=== PATIENT | male | born 1980 | race Caucasian/White ===

== ENCOUNTER 2020-12-30 18:45 | Emergency (ER) | payer MEDICAID ==
[~2020-12-30] VITALS: Ht 170.2 cm; Wt 84.8 kg
[~2020-12-30 18:45] MED LIST: ACET-8386 PO; IBUP-2213 PO
[2020-12-30 18:58] VITALS: BP 157/97
--- NOTE | 2020-12-30 19:33 | NUR ---
PT TAKEN TO BED 7
--- NOTE | 2020-12-30 19:56 | NUR ---
patient reports an abscess on the buttock that started on wednesday. Patient reports it being painful and hard to sit on his own butt. there is swelling, drainage, pain but no foul smell. AAOx4. VSS. PMH: Gout, hypertension Allergies: NKA
--- NOTE | 2020-12-30 19:57 | NUR ---
ERMD at bedside for examination
[2020-12-30] MEDS ORDERED: IBUPROFEN 600 MG TAB PO ONE (20:05)
[2020-12-30] MEDS ORDERED: LIDOCAINE/PRILOCAINE 2.5% 5 GM TUBE TP ONE (20:05)
[2020-12-30] MEDS ORDERED: LIDOCAINE/EPI 1% 1:100000 20 ML VIAL INJ ONE (20:05)
--- NOTE | 2020-12-30 21:21 | NUR ---
LEENA doing I&D procedure
[2020-12-30] MEDS ORDERED: NAPR-54 PO (21:36)
[2020-12-30] MEDS ORDERED: SULF-59 PO (21:36)
[2020-12-30] MEDS ORDERED: SULFAMETH/TRIMETH DS 800/160MG 1 TAB PO ONE (21:40)
[2020-12-30 22:15] VITALS: BP 137/106
--- NOTE | 2020-12-30 22:15 | NUR ---
Patient discharged with v/s stable. Written and verbal after care instructions given and explained. Patient alert, oriented and verbalized understanding of instructions. Ambulatory with steady gait. All questions addressed prior to discharge. ID band removed. Patient advised to follow up with PMD. Rx of Naprosyn and Bactrim Ds tab given. Patient educated on indication of medication including possible reaction and side effects. Opportunity to ask questions provided and answered.
== END 2020-12-30 22:15 | disposition home or self-care (01) ==
LOC: MED 18:45
DX: L02.31 Cutaneous abscess of buttock (principal); L03.317 Cellulitis of buttock; Z79.899 Other long term (current) drug therapy
CPT/HCPCS: 99284; J2001

== ENCOUNTER 2021-02-25 17:22 | Emergency (ER) | payer SELFPAY ==
[~2021-02-25] VITALS: Ht 170.2 cm; Wt 79.8 kg
[~2021-02-25 17:22] MED LIST changes: +NAPR-54 PO; +SULF-59 PO
[2021-02-25 17:32] VITALS: BP 140/100
[2021-02-25] MEDS ORDERED: NACL 0.9% 1,000 ML IV SCH ×2 (17:45→19:15)
[2021-02-25] MEDS ORDERED: MORPHINE SULFATE 2 MG/ML SYR IVP ONE (17:45)
[2021-02-25] MEDS ORDERED: ONDANSETRON 4 MG/2 ML VIAL IVP ONE (17:45)
--- NOTE | 2021-02-25 17:45 | NUR ---
PT EVALUATED BY DR REES IN [facility]
--- NOTE | 2021-02-25 17:48 | NUR ---
URINE SAMPLE IN [facility]
--- NOTE | 2021-02-25 17:48 | NUR ---
PT AMBULATED TO BED 10
--- NOTE | 2021-02-25 17:55 | NUR ---
41 Y/O MALE C/O SUDDEN-ONSET LOW BACK PAIN SINCE THIS AM 0500. 05/18 SHARP/STABBING RADIATING TO ABDOMEN. DENIES TRAUMA OR INJURY TO AREA. 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 DENIES FEVER, N/V/D, DENIES URINARY PROBLEMS. PT A/O X4 WITH EVEN AND UNLABORE RESPIRATIONS PMH: NONE MEDS: NONE NKA
[2021-02-25 18:11] LABS: BASOPHILS # (AUTO) 0.1 K/uL (0.00-0.22); BASOPHILS % (AUTO) 0.6 % (0.0-2.0); EOSINOPHILS # (AUTO) 0.1 K/uL (0-0.4); EOSINOPHILS % (AUTO) 0.8 % (0.0-4.0); HEMATOCRIT 42.3 % (36-52); LYMPHOCYTES % (AUTO) 16.2 % (20.5-51.1); MEAN CORPUSCULAR HEMOGLOBIN 30 pg (27-31); MEAN CORPUSCULAR HGB CONC 33 g/dL (33-37); MEAN CORPUSCULAR VOLUME 91.4 fL (80-94); MONOCYTES # (AUTO) 1.3 K/uL (0.8-1.0); MONOCYTES % (AUTO) 10.7 % (1.7-9.3); NEUTROPHILS % (AUTO) 71.7 % (42.2-75.2); PLATELET COUNT (AUTO) 239 K/uL (140-450); RED BLOOD CELL COUNT(AUTO) 4.63 MIL/uL (4.20-6.10); RED CELL DISTRIBUTION WIDTH 14.4 % (11.6-13.7); WHITE BLOOD COUNT (AUTO) 12.6 K/uL (4.8-10.8)
[2021-02-25 18:13] LABS: APPEARANCE,URINE CLEAR (CLEAR); BILIRUBIN,URINE NEGATIVE (NEGATIVE); BLOOD, URINE TRACE-I (NEGATIVE); COLOR,URINE ORANGE (YELLOW); LEUKOCYTE ESTERASE ,URINE NEGATIVE (NEGATIVE); NITRITE, URINE NEGATIVE (NEGATIVE); UGLUCOSE NEGATIVE (NEGATIVE)
--- NOTE | 2021-02-25 18:13 | NUR ---
PT TAKEN TO CT VIA W/C
--- NOTE | 2021-02-25 18:25 | NUR ---
PT BACK FROM CT
[2021-02-25 18:27] LABS: ALBUMIN 4.2 g/dL (3.4-5.0); ANION GAP 10.8 (8-16); CARBON DIOXIDE 27.2 mmol/L (21-32); CREATININE 1.1 mg/dL (0.6-1.3); TOTAL BILIRUBIN 1.3 mg/dL (0.0-1.0)
[2021-02-25 18:28] LABS: RBC,URINE 0-5 /HPF (0-5); WBC,URINE 0-5 /HPF (0-5)
--- NOTE | 2021-02-25 19:00 | NUR ---
PT C/O SAME 05/[address] REES MADE AWARE
[2021-02-25] MEDS ORDERED: ACETAMINOPHEN 325 MG TAB PO PRN (19:15)
[2021-02-25] MEDS ORDERED: MORPHINE SULFATE 2 MG/ML SYR IVP PRN (19:15)
[2021-02-25] MEDS ORDERED: LORazepam 2 MG/ML VIAL IM/IVP PRN (19:15)
[2021-02-25] MEDS ORDERED: DOCUSATE SODIUM 100 MG GELCAP PO PRN (19:15)
[2021-02-25] MEDS ORDERED: ZOLPIDEM 5 MG TAB PO PRN (19:15)
[2021-02-25] MEDS ORDERED: ONDANSETRON 4 MG/2 ML VIAL IVP PRN (19:15)
[2021-02-25] MEDS ORDERED: HYDROcodone/APAP 5/325 MG 1 TAB TAB PO PRN (19:15)
[2021-02-25] MEDS ORDERED: ONDANSETRON 4 MG/2 ML VIAL ONE (19:26)
--- NOTE | 2021-02-25 19:26 | NUR ---
REPORT GIVEN TO GATITO PÉREZ, TRANSFER OF CARE AT THIS TIME.
[2021-02-25] MEDS ORDERED: MORPHINE SULFATE 4 MG/ML SYR ONE (19:27)
[2021-02-25] MEDS ORDERED: PIPERACILLIN/TAZOBACTAM 3.375 GM VIAL IV ONE (19:30)
[2021-02-25] MEDS ORDERED: PIPERACILLIN/TAZOBACTAM 3.375 GM in DEXTROSE 5% 50 ML IV ONE (19:30)
[2021-02-25 19:45] LABS: CHOL/HDL RATIO 1.9 (1-4.5); FREE T4 (FREE THYROXINE) 0.83 ng/dL (0.76-1.46); PHOSPHORUS 3.3 mg/dL (2.5-4.9); THYROID STIMULATING HORMONE 0.74 uIU/mL (0.34-3.74)
[2021-02-25 19:46] LABS: BARBITURATE, URINE NEGATIVE ng/ml (NEG <=200); BENZODIAZEPINE, URINE NEGATIVE ng/mL (NEG <=200); CANNABINOID, URINE POSITIVE ng/mL (NEG <=50); COCAINE, URINE NEGATIVE ng/mL (NEG <=300); OPIATE, URINE NEGATIVE ng/mL (NEG <=2000); PHENCYCLIDINE SCREEN,URINE NEGATIVE ng/mL (NEG <=25)
[2021-02-25] MEDS ORDERED: metroNIDAZOLE 500 MG/NS PREMIX 100 ML IV SCH (21:00)
[2021-02-26] MEDS ORDERED: BUPIVACAINE-MPF/EPI 0.25% 30 ML VIAL INJ ONE (13:55)
[2021-02-28] MEDS ORDERED: ACET-9531 PO (11:06)
[2021-02-28] MEDS ORDERED: NAPR-54 PO (11:06)
== END 2021-02-25 19:30 | disposition left against medical advice (07) ==
LOC: MED 17:22 → UNDOADMIN 19:16 → MMU 19:16
DX: K35.80 Unspecified acute appendicitis (principal); M54.9 Dorsalgia, unspecified; F12.90 Cannabis use, unspecified, uncomplicated; Z79.899 Other long term (current) drug therapy
CPT/HCPCS: 36415; 74176; 80053; 80061; 80305; 81001; 82150; 83036; 83690; 83735; 83880; 84100; 84439; 84443; 84484; 85025; 96361; 96374; 96375; 99285; J2270; J2405; J7030; J0696; J2543; J3490; J7060

== ENCOUNTER 2021-04-03 18:00 | Emergency (ER) | payer MEDICAID, SELFPAY ==
[~2021-04-03] VITALS: Ht 170.2 cm; Wt 79.4 kg
[~2021-04-03 18:00] MED LIST changes: -ACET-8386 PO; +ACET-9531 PO; -IBUP-2213 PO; -SULF-59 PO
[2021-04-03 18:12] VITALS: BP 165/92
[2021-04-03] MEDS ORDERED: IBUP-2213 PO (19:42)
[2021-04-03] MEDS: KETOROLAC 30 MG/ML VIAL IM ONE (20:30)
--- NOTE | 2021-04-03 20:48 | NUR ---
PTS LEFT ARM WAS PLACED IN SHOULDER SLING. PTS [facility] [place] [facility]NL.
[2021-04-03 20:50] VITALS: BP 138/80
--- NOTE | 2021-04-03 20:55 | NUR ---
Brisa jones in ED - 04/03/21 at 2111 by [facility] PTS LEFT ARM WAS PLACED IN A SHOULDER SLING. PTS [facility] [place].
== END 2021-04-03 20:50 | disposition home or self-care (01) ==
LOC: MED 18:00
DX: S46.212A Strain of muscle, fascia and tendon of other parts of biceps, left arm, initial encounter (principal); X58.XXXA Exposure to other specified factors, initial encounter; Y93.89 Activity, other specified; Y92.89 Other specified places as the place of occurrence of the external cause; Y99.8 Other external cause status
CPT/HCPCS: 73060; 96372; 99283; J1885

== ENCOUNTER 2021-08-28 16:56 | Emergency (ER) | payer MEDICAID, OTHER ==
[~2021-08-28] VITALS: Ht 170.2 cm; Wt 94.3 kg
[~2021-08-28 16:56] MED LIST changes: +IBUP-2213 PO
[2021-08-28 17:35] VITALS: BP 183/110
--- NOTE | 2021-08-28 17:41 | NUR ---
C/O ABSCESS LEFT [place] X YESTERDAY. BP 183/110 AT THIS TIME. PMH: HTN
[2021-08-28] MEDS ORDERED: LIDOCAINE/EPI 1% 1:100000 20 ML VIAL INJ ONE (18:40)
[2021-08-28] MEDS ORDERED: SULF-59 PO (19:12)
[2021-08-28] MEDS ORDERED: NAPR-54 PO (19:29)
--- NOTE | 2021-08-28 20:28 | NUR ---
Patient discharged with v/s stable. Written and verbal after care instructions given and explained. Patient verbalized understanding. Ambulatory with steady gait. All questions addressed prior to discharge. Advised to follow up with PMD.
== END 2021-08-28 20:10 | disposition home or self-care (01) ==
LOC: MED 16:56
DX: L02.11 Cutaneous abscess of neck (principal); I10 Essential (primary) hypertension; Z79.899 Other long term (current) drug therapy
CPT/HCPCS: 10060; 99283; J2001; 99284

== ENCOUNTER 2023-10-10 13:47 | Inpatient (IN) | payer OTHER, MEDICAID ==
[~2023-10-10] VITALS: Ht 170.2 cm; Wt 83.6 kg
[~2023-10-10 13:47] MED LIST changes: +SULF-59 PO
[2023-10-10 14:06] VITALS: BP 119/83; PULSE 105; RESP 20; TEMP 98.4; O2SAT 98
[2023-10-10] MEDS: NACL 0.9% 2,000 ML IV ONE (14:43)
[2023-10-10] MEDS: KETOROLAC 30 MG/ML VIAL IVP ONE (14:44)
[2023-10-10] MEDS: ONDANSETRON 4 MG/2 ML VIAL IVP ONE (14:44)
[2023-10-10 15:03] LABS: BASOPHILS # (AUTO) 0.1 K/uL (0.00-0.22); BASOPHILS % (AUTO) 0.5 % (0.0-2.0); EOSINOPHILS % (AUTO) 0.1 % (0.0-4.0); HEMATOCRIT 39.6 % (36-52); HEMOGLOBIN 13.2 g/dL (12.0-18.0); LYMPHOCYTES # (AUTO) 1.4 K/uL (2.0-11.5); LYMPHOCYTES % (AUTO) 13.5 % (20.5-51.1); MEAN CORPUSCULAR HEMOGLOBIN 31 pg (27-31); MEAN CORPUSCULAR HGB CONC 33 g/dL (33-37); MEAN CORPUSCULAR VOLUME 91.4 fL (80-94); MONOCYTES # (AUTO) 0.9 K/uL (0.8-1.0); MONOCYTES % (AUTO) 7.9 % (1.7-9.3); NEUTROPHILS # (AUTO) 8.4 K/uL (1.8-7.7); PLATELET COUNT (AUTO) 405 K/uL (140-450); RED BLOOD CELL COUNT(AUTO) 4.33 MIL/uL (4.20-6.10); RED CELL DISTRIBUTION WIDTH 13.8 % (11.6-13.7); WHITE BLOOD COUNT (AUTO) 10.7 K/uL (4.8-10.8)
[2023-10-10] MEDS: MORPHINE SULFATE 4 MG/ML SYR IVP ONE (15:09)
[2023-10-10 15:22] LABS: ANION GAP 12.3 (8-16); CALCIUM 8.6 mg/dL (8.5-10.1); CARBON DIOXIDE 27.6 mmol/L (21-32); POTASSIUM 3.9 mmol/L (3.5-5.1)
[2023-10-10 15:27] LABS: ALBUMIN 2.3 g/dL (3.4-5.0); BILIRUBIN,DIRECT 0.2 mg/dL (0.0-0.3); TOTAL BILIRUBIN 0.9 mg/dL (0.0-1.0); TOTAL PROTEIN, SERUM 7.7 g/dL (6.4-8.2)
[2023-10-10 15:46] VITALS: O2SAT 98
[2023-10-10 15:48] LABS: FLU A ANTIGEN negative (NEGATIVE); FLU B ANTIGEN NEGATIVE (NEGATIVE)
[2023-10-10] MEDS ORDERED: cefTRIAXone 1,000 MG VIAL ONE (15:53)
[2023-10-10] MEDS ORDERED: AZITHROMYCIN 500 MG INJ VIAL IV ONE ×2 (15:53→16:23)
[2023-10-10] MEDS ORDERED: ONDANSETRON 4 MG/2 ML VIAL ONE (16:07)
[2023-10-10] MEDS: NACL 0.9% 1,000 ML IV SCH (16:10)
[2023-10-10] MEDS ORDERED: ONDANSETRON 4 MG/2 ML VIAL IVP PRN (16:10)
[2023-10-10] MEDS ORDERED: BENZONATATE 100 MG CAPLF PO PRN (16:15)
[2023-10-10] MEDS: AZITHROMYCIN 500 MG in DEXTROSE 5% 250 ML IV ONE (16:17)
[2023-10-10] MEDS: ASPIRIN 325 MG TAB PO ONE (16:22)
[2023-10-10] MEDS: diphenhydrAMINE 50 MG/ML VIAL IVP ONE (16:22)
[2023-10-10] MEDS ORDERED: HEPARIN PER PHARMACY MC PRN ×2 (17:25→20:55)
[2023-10-10 17:52] LABS: AMPHETAMINE, URINE POSITIVE ng/ml (NEG <=1000); BARBITURATE, URINE NEGATIVE ng/ml (NEG <=200); BENZODIAZEPINE, URINE NEGATIVE ng/mL (NEG <=200); COCAINE, URINE NEGATIVE ng/mL (NEG <=300)
[2023-10-10 17:53] LABS: CANNABINOID, URINE POSITIVE ng/mL (NEG <=50); OPIATE, URINE POSITIVE ng/mL (NEG <=2000); PHENCYCLIDINE SCREEN,URINE NEGATIVE ng/mL (NEG <=25)
[2023-10-10] MEDS ORDERED: hePARIN / DEXT 5% PREMIX 250 ML IV ONE (18:20)
[2023-10-10] MEDS: LEVALBUTEROL 0.63 MG/3 ML NEBU INH SCH (19:38)
[2023-10-10 19:40] VITALS: PULSE 100; PULSE 96; RESP 20; RESP 47; O2SAT 100; O2SAT 97
[2023-10-10 20:30] VITALS: BP 122/89; PULSE 100; PULSE 101; RESP 18; TEMP 96.7; O2SAT 99
[2023-10-10] MEDS: HEPARIN PER PHARMACY MC ONE (20:30)
[2023-10-10] MEDS ORDERED: hePARIN / DEXT 5% PREMIX 250 ML IV SCH (21:05)
[2023-10-10] MEDS: PIPERACILLIN/TAZOBACTAM 3.375 GM in DEXTROSE 5% 50 ML IV SCH (21:18)
[2023-10-10] MEDS: PIPERACILLIN/TAZOBACTAM 3.375 GM VIAL IV ONE (21:19)
[2023-10-10] MEDS: hePARIN / DEXT 5% PREMIX 250 ML IV SCH (22:29)
[2023-10-11] VITALS (10 sets, daily range): BP systolic 135–158; BP diastolic 89–108; PULSE 99–125; RESP 18–28; TEMP 96.5–98.4; O2SAT 92–100
[2023-10-11] MEDS: LORazepam 2 MG/ML VIAL IM/IVP PRN (03:00)
[2023-10-11] MEDS: HYDROcodone/APAP 5/325 MG 1 TAB TAB PO PRN (04:36)
[2023-10-11] MEDS: PIPERACILLIN/TAZOBACTAM 3.375 GM VIAL IV ONE (04:53)
[2023-10-11 06:55] LABS: BASOPHILS # (AUTO) 0.1 K/uL (0.00-0.22); BASOPHILS % (AUTO) 0.7 % (0.0-2.0); EOSINOPHILS % (AUTO) 0.3 % (0.0-4.0); HEMATOCRIT 37.8 % (36-52); HEMOGLOBIN 12.5 g/dL (12.0-18.0); LYMPHOCYTES # (AUTO) 1.9 K/uL (2.0-11.5); LYMPHOCYTES % (AUTO) 18.6 % (20.5-51.1); MEAN CORPUSCULAR HEMOGLOBIN 30 pg (27-31); MEAN CORPUSCULAR HGB CONC 33 g/dL (33-37); MEAN CORPUSCULAR VOLUME 90.8 fL (80-94); MONOCYTES % (AUTO) 9.4 % (1.7-9.3); NEUTROPHILS # (AUTO) 7.4 K/uL (1.8-7.7); PLATELET COUNT (AUTO) 383 K/uL (140-450); RED BLOOD CELL COUNT(AUTO) 4.17 MIL/uL (4.20-6.10); RED CELL DISTRIBUTION WIDTH 13.7 % (11.6-13.7); WHITE BLOOD COUNT (AUTO) 10.4 K/uL (4.8-10.8)
[2023-10-11 07:09] LABS: ANION GAP 14.4 (8-16); CALCIUM 8.3 mg/dL (8.5-10.1); CARBON DIOXIDE 23.4 mmol/L (21-32); CREATININE 1.2 mg/dL (0.6-1.3); POTASSIUM 3.8 mmol/L (3.5-5.1)
[2023-10-11] MEDS: ACETAMINOPHEN 325 MG TAB PO PRN (08:32)
[2023-10-11] MEDS ORDERED: HEPARIN PER PHARMACY MC PRN (08:40)
[2023-10-11] MEDS ORDERED: ENOXAPARIN 40 MG/0.4 ML SYR SUBQ SCH (09:00)
[2023-10-11] MEDS: HALOPERIDOL IM 5 MG/ML VIAL IM ONE ×2 (21:20→22:43)
[2023-10-12] VITALS (29 sets, daily range): BP systolic 88–158; BP diastolic 38–123; PULSE 81–139; RESP 18–47; TEMP 96.5–98.2; O2SAT 47–100
[2023-10-12] MEDS ORDERED: fentaNYL citrate 1 MG in NACL 0.9% 80 ML IV PRN (03:55)
[2023-10-12] MEDS: PROPOFOL 1000 MG/100 ML PREMIX 100 ML IV ONE (04:49)
[2023-10-12] MEDS: hydrALAZINE 20 MG/ML VIAL IVP PRN (04:56)
[2023-10-12 05:38] LABS: BLOOD GAS BASE EXCESS -2.6 mmol/L (-2.0-2.0); BLOOD GAS HCO3 21.6 mmol/L (22-26); BLOOD GAS O2 SAT% 99.9 % (92.0-98.5); BLOOD GAS PCO2 35.9 mmHg (35-45); BLOOD GAS PH 7.398 (7.35-7.45); BLOOD GAS PO2 473.9 mmHg (75-100)
[2023-10-12 08:15] LABS: BASOPHILS # (AUTO) 0.1 K/uL (0.00-0.22); BASOPHILS % (AUTO) 0.7 % (0.0-2.0); HEMATOCRIT 35.7 % (36-52); HEMOGLOBIN 11.8 g/dL (12.0-18.0); LYMPHOCYTES # (AUTO) 1.8 K/uL (2.0-11.5); MEAN CORPUSCULAR HEMOGLOBIN 30 pg (27-31); MEAN CORPUSCULAR HGB CONC 33 g/dL (33-37); MEAN CORPUSCULAR VOLUME 90.3 fL (80-94); MONOCYTES # (AUTO) 1.3 K/uL (0.8-1.0); MONOCYTES % (AUTO) 8.7 % (1.7-9.3); NEUTROPHILS # (AUTO) 11.8 K/uL (1.8-7.7); NEUTROPHILS % (AUTO) 78.6 % (42.2-75.2); PLATELET COUNT (AUTO) 304 K/uL (140-450); RED BLOOD CELL COUNT(AUTO) 3.96 MIL/uL (4.20-6.10); RED CELL DISTRIBUTION WIDTH 13.7 % (11.6-13.7)
[2023-10-12 08:25] LABS: ANION GAP 14.2 (8-16); CARBON DIOXIDE 23.7 mmol/L (21-32); CREATININE 1.3 mg/dL (0.6-1.3); POTASSIUM 3.9 mmol/L (3.5-5.1)
[2023-10-12] MEDS: ATORVASTATIN 20 MG TAB PO SCH (08:31)
[2023-10-12] MEDS: QUEtiapine FUMARATE 25 MG TAB PO SCH (08:32)
[2023-10-12] MEDS: ECOTRIN 81 MG TABEC PO SCH (08:32)
[2023-10-12] MEDS: PROPOFOL 1000 MG/100 ML PREMIX 100 ML IV PRN (12:00)
[2023-10-12 14:38] LABS: BILIRUBIN,URINE NEGATIVE (NEGATIVE); BLOOD, URINE 1+ (NEGATIVE); LEUKOCYTE ESTERASE ,URINE NEGATIVE (NEGATIVE); NITRITE, URINE NEGATIVE (NEGATIVE); PROTEIN,URINE 1+ (NEGATIVE); UGLUCOSE NEGATIVE (NEGATIVE); UROBILINOGEN,URINE 0.2 EU/dL (0.2 - 1)
[2023-10-12 14:46] LABS: APPEARANCE,URINE SLIGHTLY CLOUDY (CLEAR); COLOR,URINE YELLOW (YELLOW)
[2023-10-12 14:50] LABS: BACTERIA,URINE 0-2 /HPF (None Seen); MUCUS,URINE None Seen /LPF (None Seen); RBC,URINE 0-5 /HPF (0-5); SQUAMOUS EPITHELIAL CELL,UR 0-3 (FEW) /LPF (0-3 (FEW)); WBC,URINE 0 /HPF (0-5)
[2023-10-12 16:23] LABS: BLOOD GAS BASE EXCESS -0.4 mmol/L (-2.0-2.0); BLOOD GAS HCO3 22.5 mmol/L (22-26); BLOOD GAS O2 SAT% 98.8 % (92.0-98.5); BLOOD GAS PCO2 31.6 mmHg (35-45); BLOOD GAS PO2 140.7 mmHg (75-100)
[2023-10-12] MEDS: DEXMEDETOMIDINE HCL 400 MCG in NACL 0.9% 96 ML IV PRN (18:35)
[2023-10-13] VITALS (33 sets, daily range): BP systolic 91–118; BP diastolic 57–88; PULSE 76–119; RESP 18–24; TEMP 97.7–98.5; O2SAT 97–100
[2023-10-13 05:18] LABS: BASOPHILS # (AUTO) 0.1 K/uL (0.00-0.22); BASOPHILS % (AUTO) 0.7 % (0.0-2.0); EOSINOPHILS # (AUTO) 0.3 K/uL (0-0.4); EOSINOPHILS % (AUTO) 2.6 % (0.0-4.0); HEMOGLOBIN 11.2 g/dL (12.0-18.0); LYMPHOCYTES # (AUTO) 1.3 K/uL (2.0-11.5); LYMPHOCYTES % (AUTO) 12.5 % (20.5-51.1); MEAN CORPUSCULAR HEMOGLOBIN 30 pg (27-31); MEAN CORPUSCULAR HGB CONC 33 g/dL (33-37); MEAN CORPUSCULAR VOLUME 91.6 fL (80-94); MONOCYTES # (AUTO) 0.8 K/uL (0.8-1.0); MONOCYTES % (AUTO) 7.8 % (1.7-9.3); NEUTROPHILS # (AUTO) 8.2 K/uL (1.8-7.7); NEUTROPHILS % (AUTO) 76.4 % (42.2-75.2); PLATELET COUNT (AUTO) 261 K/uL (140-450); RED BLOOD CELL COUNT(AUTO) 3.71 MIL/uL (4.20-6.10); RED CELL DISTRIBUTION WIDTH 13.9 % (11.6-13.7); WHITE BLOOD COUNT (AUTO) 10.8 K/uL (4.8-10.8)
[2023-10-13 05:49] LABS: ANION GAP 11.2 (8-16); CALCIUM 7.9 mg/dL (8.5-10.1); CARBON DIOXIDE 26.7 mmol/L (21-32); CREATININE 1.2 mg/dL (0.6-1.3); POTASSIUM 3.9 mmol/L (3.5-5.1)
[2023-10-13] MEDS: ASPIRIN 81 MG TAB.CHEW ONE (08:17)
[2023-10-13] MEDS: ASPIRIN 81 MG TAB.CHEW PO SCH (08:17)
[2023-10-13] MEDS: FUROSEMIDE 20 MG/2 ML VIAL IVP SCH (11:00)
[2023-10-13] MEDS: CALCIUM GLUC 1 GM/50 mL NS BAG 50 ML IV SCH (11:02)
[2023-10-13] MEDS ORDERED: FUROSEMIDE 40 MG/4 ML VIAL IVP SCH (16:50)
[2023-10-14] VITALS (31 sets, daily range): BP systolic 88–126; BP diastolic 51–83; PULSE 64–102; RESP 15–22; TEMP 97.2–99.4; O2SAT 94–100
[2023-10-14 05:09] LABS: BASOPHILS # (AUTO) 0.1 K/uL (0.00-0.22); BASOPHILS % (AUTO) 0.4 % (0.0-2.0); EOSINOPHILS # (AUTO) 0.2 K/uL (0-0.4); EOSINOPHILS % (AUTO) 1.3 % (0.0-4.0); HEMATOCRIT 35.9 % (36-52); HEMOGLOBIN 11.8 g/dL (12.0-18.0); LYMPHOCYTES # (AUTO) 1.2 K/uL (2.0-11.5); LYMPHOCYTES % (AUTO) 9.3 % (20.5-51.1); MEAN CORPUSCULAR HEMOGLOBIN 30 pg (27-31); MEAN CORPUSCULAR HGB CONC 33 g/dL (33-37); MEAN CORPUSCULAR VOLUME 91.8 fL (80-94); MONOCYTES % (AUTO) 7.8 % (1.7-9.3); NEUTROPHILS % (AUTO) 81.2 % (42.2-75.2); PLATELET COUNT (AUTO) 272 K/uL (140-450); RED BLOOD CELL COUNT(AUTO) 3.91 MIL/uL (4.20-6.10); RED CELL DISTRIBUTION WIDTH 13.9 % (11.6-13.7); WHITE BLOOD COUNT (AUTO) 12.4 K/uL (4.8-10.8)
[2023-10-14 05:16] LABS: ANION GAP 11.3 (8-16); CARBON DIOXIDE 27.5 mmol/L (21-32); POTASSIUM 3.8 mmol/L (3.5-5.1)
[2023-10-14] MEDS: PANTOPRAZOLE 40 MG INJ VIAL IVP SCH ×2 (09:06→20:37)
[2023-10-14] MEDS: FUROSEMIDE 20 MG/2 ML VIAL IVP SCH (09:07)
[2023-10-14] MEDS: NOREPINEPHRINE 4 MG in DEXTROSE 5% 250 ML IV PRN (09:30)
[2023-10-14] MEDS: OSMITROL 25% 12.5 GM/50 ML VIAL IV SCH (17:30)
[2023-10-14] MEDS: NACL 3% 500 ML IV SCH (19:02)
[2023-10-15] VITALS: BP 120/80; PULSE 102; RESP 22; TEMP 98.4; O2SAT 99
== END 2023-10-15 00:55 | disposition short-term general hospital (02) | DRG 280 ==
LOC: MED 13:47 → MMU 16:07 → MTU 19:52 → MIC 10-12 02:43
PROVIDERS: ADMIT Family Medicine; ATTEND Family Medicine
PROC: 0BH17EZ Insertion of Endotracheal Airway into Trachea, Via Natural or Artificial Opening (ICD-10-PCS; principal; 2023-10-12)
PROC: 5A1945Z Respiratory Ventilation, 24-96 Consecutive Hours (ICD-10-PCS; 2023-10-12)
DX: I21.4 Non-ST elevation (NSTEMI) myocardial infarction (principal); I50.23 Acute on chronic systolic (congestive) heart failure; I63.9 Cerebral infarction, unspecified; J96.01 Acute respiratory failure with hypoxia; J18.9 Pneumonia, unspecified organism; I42.0 Dilated cardiomyopathy; E46 Unspecified protein-calorie malnutrition; F14.10 Cocaine abuse, uncomplicated; I11.0 Hypertensive heart disease with heart failure; Z20.822 Contact with and (suspected) exposure to COVID-19; F15.10 Other stimulant abuse, uncomplicated; X58.XXXA Exposure to other specified factors, initial encounter; S09.90XA Unspecified injury of head, initial encounter; Y93.89 Activity, other specified; Y92.89 Other specified places as the place of occurrence of the external cause; Z90.49 Acquired absence of other specified parts of digestive tract; Y99.8 Other external cause status; Z68.28 Body mass index [BMI] 28.0-28.9, adult
CPT/HCPCS: 31500; 36415; 36600; 70450; 71045; 71275; 80048; 80076; 80305; 81001; 82803; 83605; 83880; 84484; 85025; 85730; 87040; 87070; 87081; 87205; 93005; 94002; 94003; 94640; 96361; 96365; 96368; 96375; 99291; 99292; C9113; J0360; J0456; J0610; J0696; J1200; J1630; J1644; J1885; J1940; J2060; J2150; J2270; J2405; J2543; J2704; J3490; J7060; J7614; Q0092; Q9967